=== PATIENT | male | born 1980 | race Caucasian/White ===

== ENCOUNTER 2018-01-15 15:41 | Emergency (ER) | payer BC, OTHER ==
[~2018-01-15] VITALS: Ht 182.9 cm; Wt 95.3 kg
[2018-01-15] MEDS ORDERED: SYNTHROID75 MCG PO (15:48)
[2018-01-15] MEDS ORDERED: ADDERALL 20 MG20 M1 PO (15:49)
[2018-01-15] MEDS ORDERED: PRAVACHOL40 MG PO (15:49)
[2018-01-15] MEDS ORDERED: PROZAC20 MG PO (15:50)
[2018-01-15] MEDS ORDERED: NORCO 5-325 TA1 EACH PO (17:53)
[2018-01-15 18:10] VITALS: BP 134/92
== END 2018-01-15 18:22 | disposition home or self-care (01) ==
LOC: ER 15:41
DX: S73.02 Obturator subluxation and dislocation of hip (principal); E03.9 Hypothyroidism, unspecified; F17.210 Nicotine dependence, cigarettes, uncomplicated; Z96.641 Presence of right artificial hip joint; Z79.899 Other long term (current) drug therapy; X50.1XXA Overexertion from prolonged static or awkward postures, initial encounter; Y93.89 Activity, other specified; Y92.89 Other specified places as the place of occurrence of the external cause; Y99.8 Other external cause status